=== PATIENT | male | born 1945 | race Caucasian/White ===

== ENCOUNTER 2019-04-01 09:33 | Day surgery (SDC) | payer MEDICARE, BC ==
[2019-04-01] MEDS ORDERED: Ropivacaine 0.5% 5 MG/ML 30 ML SDV INJECT ONE (09:34)
[2019-04-01] MEDS ORDERED: Lactated Ringers 1,000 ML IV SCH (09:45)
[2019-04-01] MEDS ORDERED: Scopolamine 1.5 MG Transdermal Patch TOP ONE (09:45)
[2019-04-01] MEDS ORDERED: Gabapentin 300 MG Cap PO ONE (09:45)
[2019-04-01] MEDS ORDERED: Acetaminophen 500 MG Tab PO ONE (09:45)
[2019-04-01] MEDS ORDERED: ceFAZolin 2 GM in Premix Bag 1 BAG IV ONE (11:30)
[2019-04-01] MEDS ORDERED: Ropivacaine 49.25 ML, Ketorolac 30 MG, EPINEPHrine 0.5 MG, cloNIDine 80 MCG, Sodium Chl... INJECT SCH ×5 (11:30)
[2019-04-01] MEDS ORDERED: Tranexamic Acid 3,000 MG, Sodium Chloride 0.9% 100 ML IRR ONE ×2 (11:45)
[2019-04-01] MEDS ORDERED: Acetaminophen/oxyCODONE 325-5 MG Tab PO PRN (11:56)
[2019-04-01] MEDS ORDERED: Bisacodyl 5 MG Tab PO PRN (11:56)
[2019-04-01] MEDS ORDERED: Sennosides 8.6 MG Tab PO PRN (11:56)
[2019-04-01] MEDS ORDERED: diphenhydrAMINE 50 MG/ML SDV IVPUSH PRN (11:56)
[2019-04-01] MEDS ORDERED: Docusate Sodium 100 MG Cap PO PRN (11:56)
[2019-04-01] MEDS ORDERED: traMADol 50 MG Tab PO PRN (11:56)
[2019-04-01] MEDS ORDERED: Magnesium Hydroxide 400 MG/5 ML Susp 30 ML Cup PO PRN (11:56)
[2019-04-01] MEDS ORDERED: Morphine 2 MG/ML Syringe IVPUSH PRN (11:56)
[2019-04-01] MEDS ORDERED: Ondansetron 4 MG/2 ML SDV IVPUSH PRN (11:56)
[2019-04-01] MEDS ORDERED: Naloxone 0.4 MG/ML SDV IVPUSH PRN (11:56)
[2019-04-01] MEDS ORDERED: Ketorolac 30 MG/ML SDV IVPUSH SCH (12:00)
--- NOTE | 2019-04-01 13:27 | PCM.OPNOTE ---
- General Post-Op/Procedure Note Date of Surgery/Procedure: 04/01/19 Operative Procedure(s): left medial pka Pre Op Diagnosis: m17.12 Post-Op Diagnosis: Same Anesthesia Technique: Combo Spinal/Epidural, Moderate Sedation Primary Surgeon: Jason Reardon Anesthesia Provider: Husam Reid EBL in mLs: 100 Complications: None Condition: Good
--- NOTE | 2019-04-01 14:53 | US ---
INDICATION: Guidance for left adductor nerve block distal thigh. ULTRASOUND, RFA GUIDANCE: Multiple ultrasonic images were obtained, utilizing ultrasound for guidance for left adductor nerve block for distal thigh, . MTDD
--- NOTE | 2019-04-01 14:56 | CR ---
INDICATION: Postop left knee hemiarthroplasty. LEFT KNEE: Frontal and lateral views of the left knee were obtained postop left knee medial hemiarthroplasty. The medial hemiarthroplasty components are in good position and alignment without evidence of a complicating process. Postop air is noted intraarticular. Metallic clips are noted for skin closure anteriorly. IMPRESSION: Satisfactory appearance postop medial hemiarthroplasty left knee. [facility]
[2019-04-01] MEDS: Ketorolac 30 MG/ML SDV IVPUSH SCH ×2 (15:13→22:04)
[2019-04-01] MEDS: Sodium Chloride 0.9% 10 ML Syringe FLUSH PRN ×2 (15:17→22:04)
--- NOTE | 2019-04-01 16:11 | PCM.SN ---
- Free Text/Narrative Note: ANESTHESIA ACUTE PAIN SERVICE Date: 04/01/2019 Time: 1347 to 1357 Preoperative Dx: Left Knee Osteoarthritis with Pain Postoperative Rx: Left Partial Knee Arthroplasty The surgeon and the patient have requested Peripheral Regional Anesthesia for Postoperative Pain Control. Procedure: Left Adductor Canal Nerve Block with Ultrasound [U/S] Guidance. Monitors: NIBP, Heart Rate, SpO2 and Oxygen via Simple Face Mask at 10L/M. See the nursing notes for vital signs during this procedure. Sedation: Versed .5 mg's and Fentanyl 50 mcg's IV. He remained easily arousable and alert throughout the procedure. His left leg was placed in a frog-leg position. A preprocedure U/S scan was done locating the left Sartorius Muscle and Femoral Artery easily. I prepped the needle insertion site area with 1 Chlora-prep Swab and allowed it to dry. No skin localization was needed [residual spinal effect]. Under direct U/S visualization, I advanced a 20 Ga. 4 In. Stimuplex Ultra 360 Echogenic Needle to proper placement. A total of 20 ml's of .5% Naropin in divided doses was injected easily with negative aspiration frequently for blood under direct U/S visualization. The patient is without complaints and tolerated the procedure well. Documentation: Please see the images in the Radiology PAC System. Thank you for using this service. BHAVESH River CRNA
--- NOTE | 2019-04-01 18:58 | OR ---
DATE OF OPERATION: 04/01/2019 SURGEON: Jason Reardon DO PREOPERATIVE DIAGNOSIS: Left knee primary osteoarthritis. POSTOPERATIVE DIAGNOSIS: Left knee primary osteoarthritis. PROCEDURE PERFORMED: Left knee medial compartment arthroplasty. ANESTHESIA: Spinal plus conscious sedation. FLUID: Lactated Ringer solution. ESTIMATED BLOOD LOSS: 100 mL. COMPLICATIONS: None. SPECIMEN: None. DISCHARGE DISPOSITION: Stable to PACU. INSTRUMENTATION: DePuy Sigma medial compartment; size 3 tibial tray; size 3, 8 mm polyethylene fixed-bearing insert; and size 4 femur. HISTORY AND INDICATIONS FOR THE PROCEDURE: The patient was seen before in clinic. He had failed nonoperative treatment. Preoperative imaging confirmed the above-mentioned diagnosis. Risks and benefits of the procedure were explained to the patient. Informed consent was obtained. DETAILS OF PROCEDURE: The patient was seen preoperatively by myself and the Anesthesia staff in the preoperative holding area where the operative site was marked. He was brought to the operative suite by the Anesthesia staff where spinal sedation was administered plus conscious sedation. A sterile Mehta catheter was inserted. A well-padded tourniquet was placed on the left thigh. The left lower extremity was then prepped and draped in a sterile manner. A time-out was called identifying the correct patient, the correct procedure, the correct site, and the antibiotics were in with an appropriate period of time. An incision was made medial to the superior pole of patella down to the level of the tibial tubercle. Bleeding was controlled with Bovie electrocautery. Please note, this was done after the time-out and exsanguinating and raising the tourniquet to 250 mmHg for 31 minutes and letting down during cementing. We then proceeded with a medial parapatellar arthrotomy and removed the infrapatellar fat pad and then performed a partial medial synovectomy. I then used Bovie electrocautery to expose the proximal medial tibia. We used Gelpi's for retraction. I used an extramedullary tibial guide with 0 to 2 degrees of slope and 2 mm cut. I made my vertical cut first in line with the anterior superior iliac spine and then the vertical cut and then removed the guide and then used an osteotome to finish my cuts. I then removed it. The femur was sized at 2. I had 7 mm minimum at that point with my measuring paddle. I then brought the knee into extension and then placed my distal femoral cutting guide. I pinned this in place, made my distal femoral cut and then removed the guide and then removed the distal femoral bone. I then marked the midportion using the paddles in both flexion and extension and then la a line between these two raya with the Bovie. I then inserted a #4 distal femoral cutting guide and pinned this into position. I then made my 3 chamfer cuts and 2 lug cuts. After this had been performed, I removed the guide and then finished my cuts and then removed any extra bone with the osteotome. I then placed my femoral trial, which fit well and this fit well with the 7 paddle. I then removed the femoral trial and then placed my tibial base plate for the keel cut. I then gouged the keel and kept this in position using a lamina bombsight specialist. I then drilled the lug hole and then removed the guide. We then copiously irrigated with saline. I did apply TXA as well as periarticular injection. I then cemented all my components in place using a 7 mm paddle. While the cement was drying, we let down the tourniquet. We made care to make sure all the cement was removed. After the cement dried, I ranged it and then placed an 8 paddle which seemed to be a little bit better for stability. We then copiously irrigated with saline as well as applied more TXA and applied some iodine and then irrigated again and placed my final polyethylene insert. This provided good range of motion with stability. We then irrigated again and then closed my parapatellar arthrotomy with two #5 [id number] Ethibond in an interrupted manner at the superior and inferior pole of the patella. I then closed with my #1 Stratafix. We then irrigated again with iodine and closed the subcutaneous layer with #1 Stratafix. We then applied skin fili, Betadine-soaked Adaptic, and then a sterile dressing followed by an Nehemiah wrap. The patient was then allowed to awaken from conscious sedation and then transferred to the PACU in stable condition. /[id number] WANG/HAM
[2019-04-01] MEDS: METFORMIN 500 MG PO SCH (19:17)
[2019-04-01] MEDS: ceFAZolin 2 GM in Premix Bag 1 BAG IV SCH (19:52)
[2019-04-01] MEDS ORDERED: ceFAZolin 1 GM Vial IVPUSH SCH (20:00)
[2019-04-01] MEDS ORDERED: Tamsulosin 0.4 MG Cap.ER*PTOM PO SCH (21:00)
[2019-04-01] MEDS ORDERED: PRAVASTATIN 20 MG PO SCH (21:00)
[2019-04-02] MEDS: ceFAZolin 2 GM in Premix Bag 1 BAG IV SCH (04:02)
[2019-04-02] MEDS ORDERED: Pantoprazole 40 MG Tab.CR PO SCH (06:00)
[2019-04-02] MEDS: METFORMIN 500 MG PO SCH (08:57)
[2019-04-02] MEDS ORDERED: Aspirin 325 MG Tab.EC PO SCH (09:00)
[2019-04-02] MEDS ORDERED: LISINOPRIL 10 MG PO SCH (09:00)
[2019-04-02] MEDS ORDERED: Metoprolol Tartrate 25 MG Tab*PTOM PO SCH (09:00)
[2019-04-02] MEDS ORDERED: HYDROCHLOROTHIAZIDE 25 MG PO SCH (09:00)
--- NOTE | 2019-04-02 09:51 | PCM.DCSUM1 ---
Discharge Summary - Hospital Course HPI Initial Comments: left knee primary osteoarthritis Diagnosis: Stroke: No - Discharge Data Discharge Date: 04/02/19 Discharge Disposition: Home, Self-Care 01 Condition: Good - Patient Summary/Data Operative Procedure(s) Performed: left medial pka Complications: none Consults: Consultations 04/01/19 11:56 Respiratory Care Assess and Treatment [CONS] Routine Comment: Physician Instructions: Post-op Pneumonia Prevention 04/01/19 15:00 OT Evaluation and Treatment [CONS] Routine Please Evaluate and Treat. OT Reason for Consult: Strengthening This query below is only for informational purposes and is not editable. Admission Diagnosis/Problem: Arthroplasty of knee PT Evaluation and Treatment [CONS] Routine Please Evaluate and Treat. PT Reason for Consult: Strengthening This query below is only for informational purposes and is not editable. Admission Diagnosis/Problem: Arthroplasty of knee - Patient Instructions Diet: Usual Diet as Tolerated Activity: Apply Ice, As Tolerated, Full Weight Bearing, No Strenuous Activities Driving: Do Not Drive Showering/Bathing: May Shower Showering/Bathing, Other: may shower then replace with clean dressing Wound/Incision Care: Keep Operative Site/Wound Site Clean and Dry, Change Dressing Daily Notify Provider of: Fever, Increased Pain, Swelling and Redness, Drainage, Nausea and/or Vomiting - Discharge Plan *PRESCRIPTION DRUG MONITORING PROGRAM REVIEWED*: Yes *COPY OF PRESCRIPTION DRUG MONITORING REPORT IN PATIENT GISSEL: No Prescriptions/Med Rec: Acetaminophen/oxyCODONE [Percocet 325-5 MG] 1 tab PO QID PRN #56 tablet PRN Reason: Pain (Moderate 4-6) Aspirin [Ecotrin] 325 mg PO DAILY #21 tab.ec traMADol [Ultram] 100 mg PO Q6H PRN #56 tablet PRN Reason: Pain (Mild 1-3) Home Medications: Home Meds Aspirin 162.5 mg PO DAILY 03/31/19 [History] Cinnamon Bark [Cinnamon] 500 mg PO BID 03/31/19 [History] Fish Oil/[place]-3 Fatty Acids [Fish Oil 1,000 MG] 1 gm PO DAILY 03/31/19 [History ] Lisinopril 10 mg PO DAILY 03/31/19 [History] Metoprolol Tartrate 25 mg PO DAILY 03/31/19 [History] Multivitamin [Multi-Day Vitamins] 1 tab PO DAILY 03/31/19 [History] Pravastatin Sodium 20 mg PO BEDTIME 03/31/19 [History] Tamsulosin [Flomax] 0.4 mg PO BEDTIME 03/31/19 [History] Triamcinolone Acetonide [Kenalog 0.1% Crm] 1 applic TOP BID PRN 03/31/19 [ History] hydroCHLOROthiazide [Hydrochlorothiazide] 12.5 mg PO DAILY 03/31/19 [History] metFORMIN [Glucophage] 500 mg PO BIDMEALS 03/31/19 [History] Acetaminophen/oxyCODONE [Percocet 325-5 MG] 1 tab PO QID PRN #56 tablet [Rx] Aspirin [Ecotrin] 325 mg PO DAILY #21 tab.ec 04/02/19 [Rx] traMADol [Ultram] 100 mg PO Q6H PRN #56 tablet 04/02/19 [Rx] - Discharge Summary/Plan Comment DC Time >30 min.: No - General Info Date of Service: 04/02/19 Functional Status: Reports: Pain Controlled, Tolerating Diet, Ambulating, Urinating - Review of Systems General: Reports: No Symptoms HEENT: Reports: No Symptoms Pulmonary: Reports: No Symptoms Cardiovascular: Reports: No Symptoms Gastrointestinal: Reports: No Symptoms Genitourinary: Reports: No Symptoms Musculoskeletal: Reports: No Symptoms, Leg Pain, Joint Pain, Joint Swelling Skin: Reports: No Symptoms Neurological: Reports: No Symptoms Psychiatric: Reports: No Symptoms - Patient Data Vitals - Most Recent: Last Vital Signs Temp 95.8 F 04/01/19 19:30 Pulse 62 04/02/19 08:59 Resp 18 04/01/19 19:30 BP 120/64 04/02/19 09:00 Pulse Ox 96 04/01/19 19:30 Weight - Most Recent: 271 lb I&O - Last 24 hours: Intake & Output 04/01/19 04/02/19 04/02/19 22:59 06:59 14:59 Intake Total 240 240 Output Total 100 200 Balance 140 40 Lab Results - Last 24 hrs: Laboratory Results - last 24 hr 04/02/19 04/02/19 Range/Units 06:25 06:25 WBC 8.4 (4.5-12.0) X10-3/uL RBC 4.19 L (4.30-5.75) x10(6)uL Hgb 12.6 L (13.5-17.8) g/dL Hct 37.1 (30.0-51.3) % MCV 88.7 (80-96) fL MCH 30.1 (27.7-33.6) pg MCHC 33.9 (32.2-35.4) g/dL RDW 14.3 (11.5-15.5) % Plt Count 192 (125-369) X10(3)uL MPV 6.9 L (7.4-10.4) fL Neut % (Auto) 80.5 (46-82) % Lymph % (Auto) 10.4 L (13-37) % [place] % (Auto) 7.2 (4-12) % Eos % (Auto) 2 (1.0-5.0) % Baso % (Auto) 0 (0-2) % Neut # (Auto) 6.7 (1.6-8.3) # Lymph # (Auto) 0.9 (0.6-5.0) # [place]itus # (Auto) 0.6 (0.0-1.3) # Eos # (Auto) 0.2 (0.0-0.8) # Baso # (Auto) 0.0 (0.0-0.2) # Sodium 137 (135-145) mmol/L Potassium 4.0 (3.5-5.3) mmol/L Chloride 103 (100-110) mmol/L Carbon Dioxide 24 (21-32) mmol/L BUN 33 H (7-18) mg/dL Creatinine 1.6 H (0.70-1.30) mg/dL Est Cr Clr Drug Dosing 36.00 mL/min Estimated GFR (MDRD) 42 L (>60) BUN/Creatinine Ratio 20.6 H (9-20) Glucose 117 H (80-116) mg/dL Calcium 8.3 L (8.6-10.2) mg/dL Total Bilirubin 0.4 (0.1-1.3) mg/dL AST 13 (5-25) IU/L ALT 21 (12-36) U/L Alkaline Phosphatase 65 (56-112) IU/L Total Protein 5.9 L (6.0-8.0) g/dL Albumin 3.0 L (3.2-4.6) g/dL Globulin 2.9 g/dL Albumin/Globulin Ratio 1.0 Med Orders - Current: Current Medications Aspirin (Ecotrin) 325 mg PO DAILY [facility] Last Admin: 04/02/19 08:58 Dose: 325 mg Bisacodyl (Dulcolax) 10 mg PO DAILY PRN PRN Reason: Constipation Diphenhydramine HCl (Benadryl) 25 mg IVPUSH Q4H PRN PRN Reason: Itching Docusate Sodium (Colace) 100 mg PO BID PRN PRN Reason: Constipation Hydrochlorothiazide (Hydrochlorothiazide) 12.5 mg PO DAILY [facility] Last Admin: 04/02/19 08:58 Dose: 12.5 mg Lactated Ringer's (Ringers, Lactated) 1,000 mls @ 125 mls/hr IV ASDIRECTED [facility] Last Admin: 04/01/19 10:31 Dose: 125 mls/hr Lisinopril (Prinivil) 10 mg PO DAILY [facility] Last Admin: 04/02/19 09:00 Dose: 10 mg Magnesium Hydroxide (Milk Of Magnesia) 30 ml PO BID PRN PRN Reason: Constipation Metformin HCl (Glucophage) 500 mg PO BIDMEALS [facility] Last Admin: 04/02/19 08:57 Dose: 500 mg Metoprolol Tartrate (Lopressor) 25 mg PO DAILY [facility] Last Admin: 04/02/19 08:59 Dose: 25 mg Morphine Sulfate (Morphine) 2 mg IVPUSH Q2H PRN PRN Reason: Breakthrough Pain Naloxone HCl (Narcan) 0.1 mg IVPUSH ONETIME PRN PRN Reason: Oversedation Ondansetron HCl (Zofran) 4 mg IVPUSH Q4H PRN PRN Reason: Nausea/Vomiting Oxycodone/Acetaminophen (Percocet 325-5 Mg) 2 tab PO Q4H PRN PRN Reason: Pain (moderate 4-6) Pantoprazole Sodium (Protonix) 40 mg PO 0600 [facility] Last Admin: 04/02/19 06:01 Dose: 40 mg Pravastatin Sodium (Pravachol) 20 mg PO BEDTIME [facility] Last Admin: 04/01/19 22:03 Dose: 20 mg Senna (Senna) 8.6 mg PO BID PRN PRN Reason: Constipation Sodium Chloride (Saline Flush) 10 ml FLUSH ASDIRECTED PRN PRN Reason: Keep Vein Open Last Admin: 04/01/19 22:04 Dose: 10 ml Tamsulosin HCl (Flomax) 0.4 mg PO BEDTIME [facility] Last Admin: 04/01/19 22:04 Dose: 0.4 mg Tramadol HCl (Ultram) 100 mg PO Q6H PRN PRN Reason: Pain (mild 1-3) Discontinued Medications Acetaminophen (Tylenol Extra Strength) 1,000 mg PO ONETIME ONE Stop: 04/01/19 09:46 Last Admin: 04/01/19 10:27 Dose: 1,000 mg Ropivacaine 49.25 ml/Ketorolac Tromethamine 30 mg/Epinephrine HCl 0.5 mg/ Clonidine HCl 80 mcg/ Sodium Chloride 48.45 ml 0 ml INJECT ASDIRECTED [facility] Last Admin: 04/01/19 12:49 Dose: 100 syringe Tranexamic Acid 3,000 mg/ (Sodium Chloride 100 ml) 0 mg IRR ONETIME ONE Stop: 04/01/19 11:46 Last Admin: 04/01/19 12:51 Dose: 3,000 irr Gabapentin (Neurontin) 300 mg PO ONETIME ONE Stop: 04/01/19 09:46 Last Admin: 04/01/19 10:27 Dose: 300 mg Cefazolin Sodium/Dextrose 2 gm (/ Premix) 50 mls @ 100 mls/hr IV ONETIME ONE Stop: 04/01/19 11:59 Last Admin: 04/01/19 10:30 Dose: 100 mls/hr Cefazolin Sodium/Dextrose 2 gm (/ Premix) 50 mls @ 100 mls/hr IV Q8H [facility] Stop: 04/02/19 04:29 Last Admin: 04/02/19 04:02 Dose: 100 mls/hr Ketorolac Tromethamine (Toradol) 30 mg IVPUSH Q8H [facility] Ketorolac Tromethamine (Toradol) 30 mg IVPUSH Q8H [facility] Stop: 04/01/19 22:31 Last Admin: 04/01/19 22:04 Dose: 30 mg Scopolamine (Transderm-Scop) 1.5 mg TOP ONETIME ONE Stop: 04/01/19 09:46 Last Admin: 04/01/19 10:28 Dose: 1.5 mg - Exam Quality Assessment: Reports: DVT Prophylaxis General: Reports: Alert, Oriented, Cooperative, No Acute Distress HEENT: Reports: Pupils Equal, Pupils Reactive, EOMI, Mucous Membr. Moist/[place]: Reports: Supple, Trachea Midline Lungs: Reports: Normal Respiratory Effort GI/Abdominal Exam: No Distention Extremities: Joint Swelling, Leg Pain, Limited Range of Motion Skin: Reports: Warm, Dry, Intact Wound/Incisions: Reports: Healing Well, Dressing Dry and Intact, No Drainage Neurological: Reports: No New Focal Deficit Psy/Mental Status: Reports: Alert, Normal Affect, Normal Mood Physical Findings Comments:: ambulating well with walker, pain well controlled Discharge Operative/Procedures - Procedures Performed Operations: left medial pka
== END 2019-04-02 11:45 | disposition home or self-care (01) ==
LOC: FB.SDS 09:33 → FB.MS 14:20 → FB.SDS 04-02 11:45
PROVIDERS: ATTEND Orthopaedic Surgery
DX: M17.12 Unilateral primary osteoarthritis, left knee (principal); I12.9 Hypertensive chronic kidney disease with stage 1 through stage 4 chronic kidney disease, or unspecified chronic kidney disease; E11.22 Type 2 diabetes mellitus with diabetic chronic kidney disease; N18.9 Chronic kidney disease, unspecified; Z87.892 Personal history of anaphylaxis; Z79.82 Long term (current) use of aspirin; Z79.899 Other long term (current) drug therapy
CPT/HCPCS: 01400-QZ; 36415; 64447-QZ; 73560-LT; 80053; 82962; 85025; 94150; 97110-GP; 97161-GP; 97165-GO; A9270-GY; C1776; J0171; J0690; J0735; J1885; J2795; J7030; J7050; J7120

== ENCOUNTER 2021-02-05 12:51 | Inpatient (IN) | payer MEDICARE, BC ==
[2021-02-05] MEDS ORDERED: Non-Formulary Medication 1 Each (Insulin Aspart [Novolog] 100 UNIT/ML Pen) SUBCUT PRN (16:34)
[2021-02-05] MEDS ORDERED: Glucagon,Human Recombinant 1 MG Vial IM PRN (16:34)
[2021-02-05] MEDS ORDERED: 50% Dextrose in Water 50 ML Syringe IVPUSH PRN (16:34)
--- NOTE | 2021-02-05 17:31 | PCM.HP.2 ---
H&P History of Present Illness - General Date of Service: 02/05/21 Admit Problem/Dx: Admission Diagnosis/Problem Admission Diagnosis/Problem Weakness Source of Information: Patient, Old Records History Limitations: Reports: No Limitations - History of Present Illness Initial Comments - Free Text/Narative: This is a 75-year-old male patient was transferred from [address] for swing bed. He was admitted on 01/04/21 for malaise, cough, congestion, weakness. He was found to have COVID-19, acute kidney injury. This progressed to a pneumonia and respiratory failure. He was in the hospital for 1 month and transfer today. Today he is on oxygen and is short of breath but other than that he has no complaints she denies fevers, chills,sore throat, cough. He has some hematuria has a urostomy. He will have another operation with urology. The urologist will not do the operate until his oxygen is normal. Is here to wean off his oxygen and to strengthen. - Related Data Allergies/Adverse Reactions: Allergies Allergy/AdvReac Type Severity Reaction Status Date / Time Gafrnqd-[id number]-Bvq Reductase Allergy Muscle Verified 04/01/19 09:48 Inhibitor Aches Home Medications: Home Meds Metoprolol Tartrate 25 mg PO BID 03/31/19 [History] Apixaban [Eliquis] 5 mg PO BID 02/05/21 [History] Ascorbic Acid 500 mg PO DAILY 02/05/21 [History] Aspirin 81 mg PO DAILY 02/05/21 [History] Cholecalciferol (Vitamin D3) [Vitamin D3] 1,200 unit PO DAILY 02/05/21 [History] Furosemide [Lasix] 20 mg PO DAILY 02/05/21 [History] Insulin Aspart [NovoLOG] 1 - 16 units SUBCUT WITHMEALSANDBED PRN 02/05/21 [History] Insulin Aspart [NovoLOG] 4 unit SUBCUT TIDMEALS 02/05/21 [History] Insulin Glarg,Human.Rec.Analog [Lantus Solostar] 16 unit SUBCUT BEDTIME 02/05/21 [History] Melatonin 6 mg PO BEDTIME 02/05/21 [History] Sertraline HCl 25 mg PO DAILY 02/05/21 [History] Zinc Sulfate [Zincate] 220 mg PO DAILY 02/05/21 [History] Past Medical History Cardiovascular History: Reports: Hypertension Gastrointestinal History: Reports: Diverticulosis, Hemorrhoids Endocrine/Metabolic History: Reports: Diabetes, Type II Dermatologic History: Reports: Other (See Below) Other Dermatologic History: DERMATITIS - Past Surgical History HEENT Surgical History: Reports: Oral Surgery Respiratory Surgical History: Reports: Lung Biopsies GI Surgical History: Reports: Colonoscopy, Hernia Repair/Other, Other (See Below) Other GI Surgeries/Procedures: HEMORRHOID SURGERY Musculoskeletal Surgical History: Reports: Knee Replacement, Other (See Below) Other Musculoskeletal Surgeries/Procedures:: HAND SURGERY Social & Family History - Family History Cardiac: Reports: Hypertension, Other (See Below) (Other cardiovascular disease) Respiratory: Reports: Other (See Below) (With) Psychiatric: Reports: Other (See Below) (Brother with Alzheimer's disease) Other Oncologic Family History: For the colon cancer, brother with lymphoma, sisters with colon cancer, sister with breast cancer, mother with breast cancer - Caffeine Use Caffeine Use: Reports: Coffee H&P Review of Systems - Review of Systems: Review Of Systems: See Below General: Reports: Weakness HEENT: Reports: No Symptoms Pulmonary: Reports: Shortness of Breath, Wheezing Cardiovascular: Reports: No Symptoms Gastrointestinal: Reports: No Symptoms Genitourinary: Reports: No Symptoms Musculoskeletal: Reports: No Symptoms Skin: Reports: No Symptoms Psychiatric: Reports: No Symptoms Neurological: Reports: No Symptoms Hematologic/Lymphatic: Reports: No Symptoms Immunologic: Reports: No Symptoms Exam - Exam Exam: See Below - Vital Signs Vital Signs: Last Vital Signs Temp Pulse Resp BP Pulse Ox 92 L 02/05/21 16:31 Weight: 183 lb 6 oz - Exam General: Alert, Oriented, Cooperative, Other (O2 in place) HEENT: Hearing Intact, Posterior Pharynx Clear, TMs Clear Neck: Supple, Trachea Midline Lungs: Clear to Auscultation, Normal Respiratory Effort Cardiovascular: Regular Rate, Regular Rhythm GI/Abdominal Exam: Normal Bowel Sounds, Soft, Non-Tender, No Distention Back Exam: Normal Inspection, Full Range of Motion Extremities: Normal Inspection, Non-Tender, No Pedal Edema Neuro Extensive - Mental Status: Alert, Oriented x3, Normal Mood/Affect, Normal Cognition, Memory Intact Psychiatric: Alert, Normal Affect, Normal Mood Sepsis Event Note - Evaluation Sepsis Screening Result: No Definite Risk - Focused Exam Vital Signs: Vital Signs Pulse Ox 02/05/21 16:31 92 L - Problem List (1) Pneumonia due to COVID-19 virus SNOMED Code(s): 790191367451819057 ICD Code: U07.1 - COVID-19; J12.82 - PNEUMONIA DUE TO CORONAVIRUS DISEASE 2019 Status: Acute Current Visit: Yes (2) Respiratory failure SNOMED Code(s): 152567197 ICD Code: J96.90 - RESPIRATORY FAILURE, UNSP, UNSP W HYPOXIA OR HYPERCAPNIA Status: Acute Current Visit: Yes (3) O2 dependent SNOMED Code(s): 992248357450 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 Status: Acute Current Visit: Yes (4) Acute weakness SNOMED Code(s): 30803425 ICD Code: R53.1 - WEAKNESS Status: Acute Current Visit: Yes Problem List Initiated/Reviewed/Updated: Yes Orders Last 24hrs: Active Orders 24 hr Category Date Time Status Admission Status [Patient Status] [ADT] Routine ADT 02/05/21 15:30 Active Patient Status [ADT] Routine ADT 02/05/21 16:31 Active Blood Glucose Check, Bedside [RC] BIDMEALS Care 02/05/21 16:30 Active Oxygen Therapy [RC] PRN Care 02/05/21 16:31 Active Up With Assistance [RC] ASDIRECTED Care 02/05/21 16:30 Active VTE/DVT Education [RC] Per Unit Routine Care 02/05/21 16:31 Active Vital Signs [RC] DAILY Care 02/05/21 16:30 Active OT Evaluation and Treatment [CONS] Routine Cons 02/05/21 16:30 Active PT Evaluation and Treatment [CONS] Routine Cons 02/05/21 16:30 Active Consistent Carbohydrate Diet [DIET] Diet 02/05/21 Dinner Active Apixaban [Eliquis] Med 02/05/21 21:00 Active 5 mg PO BID Ascorbic Acid [Vitamin C] Med 02/06/21 09:00 Active 500 mg PO DAILY Aspirin Med 02/06/21 09:00 Active 81 mg PO DAILY Cholecalciferol (Vitamin D3) [Vitamin D3] Med 02/06/21 09:00 Active 25 mcg PO DAILY Dextrose 50% in Water Med 02/05/21 16:34 Active 50 ml IVPUSH ASDIRECTED PRN Furosemide [Lasix] Med 02/06/21 09:00 Active 20 mg PO DAILY Glucagon,Human Recombinant [GlucaGen] Med 02/05/21 16:34 Active 1 mg IM ASDIRECTED PRN Insulin Glarg,Human.Rec.Analog [LantUS Solostar] Med 02/05/21 21:00 Active 16 units SUBCUT BEDTIME Insulin Lispro [HumaLOG] Med 02/05/21 18:00 Active 4 unit SUBCUT TIDMEALS Insulin Lispro [HumaLOG] Med 02/05/21 18:00 Active See Protocol SUBCUT WITHMEALSANDBED Melatonin Med 02/05/21 21:00 Active 6 mg PO BEDTIME Metoprolol Tartrate [Lopressor] Med 02/05/21 21:00 Active 25 mg PO BID Sertraline [Zoloft] Med 02/06/21 09:00 Active 25 mg PO DAILY Zinc Sulfate [Zincate] Med 02/06/21 09:00 Active 220 mg PO DAILY Resuscitation Status Routine Resus Stat 02/05/21 16:30 Ordered Medication Orders Apixaban (Apixaban 5 Mg Tab) 5 mg PO BID [facility] Ascorbic Acid (Ascorbic Acid 500 Mg Tab) 500 mg PO DAILY [facility] Aspirin (Aspirin 81 Mg Tab.Chew) 81 mg PO DAILY [facility] Cholecalciferol (Cholecalciferol (Vitamin D3) 25 Mcg Tab) 25 mcg PO DAILY [facility] Dextrose/Water (50% Dextrose In Water 50 Ml Syringe) 50 ml IVPUSH ASDIRECTED PRN PRN Reason: Hypoglycemia Furosemide (Furosemide 20 Mg Tab) 20 mg PO DAILY [facility] Glucagon (Glucagon,Human Recombinant 1 Mg Vial) 1 mg IM ASDIRECTED PRN PRN Reason: Hypoglycemia Insulin Glargine (Insulin Glargine,Human Rec. Analog 100 Units/Ml 3 Ml Pen) 16 units SUBCUT BEDTIME [facility] Insulin Human Lispro (Insulin Lispro 100 Unit/Ml 3 Ml Kwikpen) 4 unit SUBCUT TIDMEALS [facility] Insulin Human Lispro (Insulin Lispro 100 Unit/Ml 3 Ml Kwikpen) 0 unit SUBCUT WITHMEALSANDBED [facility]; Protocol Melatonin (Melatonin 3 Mg Tab) 6 mg PO BEDTIME [facility] Metoprolol Tartrate (Metoprolol Tartrate 25 Mg Tab) 25 mg PO BID [facility] Sertraline HCl (Sertraline 25 Mg Tab) 25 mg PO DAILY [facility] Zinc Sulfate (Zinc Sulfate 220 Mg Cap) 220 mg PO DAILY [facility] Assessment/Plan Comment:: 1. Admit to swing bed. 2. PT/OT eval 3. Diabetic diet with Accu-Cheks twice a day 4. O2 and then try to wean over time. 5. Up with assist 6. No labs or x-rays. 7. Full code 8. See swing bed orders - Mortality Measure Prognosis:: Good
[2021-02-05] MEDS: Insulin Lispro 100 Unit/ML 3 ML KwikPen SUBCUT SCH ×3 (18:20→21:51)
[2021-02-05] MEDS ORDERED: Insulin Lispro 100 Unit/ML 3 ML KwikPen SUBCUT ONE (21:00)
[2021-02-05] MEDS ORDERED: Insulin Glargine,Human Rec. Analog 100 Units/ML 3 ML Pen SUBCUT ONE (21:00)
[2021-02-05] MEDS ORDERED: Insulin Glargine,Human Rec. Analog 100 Units/ML 3 ML Pen SUBCUT SCH (21:00)
[2021-02-05] MEDS: Metoprolol Tartrate 25 MG Tab PO SCH (21:46)
[2021-02-05] MEDS: Melatonin 3 MG Tab PO SCH (21:47)
[2021-02-05] MEDS: Apixaban 5 MG Tab PO SCH (21:47)
[2021-02-06] MEDS: Metoprolol Tartrate 25 MG Tab PO SCH ×2 (09:00→10:34)
[2021-02-06] MEDS: Insulin Lispro 100 Unit/ML 3 ML KwikPen SUBCUT SCH ×6 (09:00→21:49)
[2021-02-06] MEDS: Ascorbic Acid 500 MG Tab PO SCH (10:00)
[2021-02-06] MEDS: Sertraline 25 MG Tab PO SCH (10:00)
[2021-02-06] MEDS: Cholecalciferol (Vitamin D3) 25 MCG Tab PO SCH (10:00)
[2021-02-06] MEDS: Aspirin 81 MG Tab.Chew PO SCH (10:01)
[2021-02-06] MEDS: Apixaban 5 MG Tab PO SCH ×2 (10:01→21:21)
[2021-02-06] MEDS: Zinc Sulfate 220 MG Cap PO SCH (10:01)
[2021-02-06] MEDS: Furosemide 20 MG Tab PO SCH (10:32)
[2021-02-06] MEDS: Melatonin 3 MG Tab PO SCH (21:21)
[2021-02-06] MEDS: Insulin Glargine,Human Rec. Analog 100 Units/ML 3 ML Pen SUBCUT SCH (21:50)
[2021-02-07] MEDS: Sertraline 25 MG Tab PO SCH (08:41)
[2021-02-07] MEDS: Ascorbic Acid 500 MG Tab PO SCH (08:41)
[2021-02-07] MEDS: Zinc Sulfate 220 MG Cap PO SCH (08:41)
[2021-02-07] MEDS: Apixaban 5 MG Tab PO SCH ×2 (08:41→21:36)
[2021-02-07] MEDS: Aspirin 81 MG Tab.Chew PO SCH (08:41)
[2021-02-07] MEDS: Furosemide 20 MG Tab PO SCH (08:41)
[2021-02-07] MEDS: Insulin Lispro 100 Unit/ML 3 ML KwikPen SUBCUT SCH ×4 (08:42→21:43)
[2021-02-07] MEDS: Cholecalciferol (Vitamin D3) 25 MCG Tab PO SCH (08:43)
[2021-02-07] MEDS: Melatonin 3 MG Tab PO SCH (21:37)
[2021-02-07] MEDS: Metoprolol Tartrate 25 MG Tab PO SCH (21:41)
[2021-02-07] MEDS: Insulin Glargine,Human Rec. Analog 100 Units/ML 3 ML Pen SUBCUT SCH (21:41)
[2021-02-08] MEDS: Insulin Lispro 100 Unit/ML 3 ML KwikPen SUBCUT SCH ×4 (08:45→20:22)
[2021-02-08] MEDS: Aspirin 81 MG Tab.Chew PO SCH (08:46)
[2021-02-08] MEDS: Ascorbic Acid 500 MG Tab PO SCH (08:47)
[2021-02-08] MEDS: Apixaban 5 MG Tab PO SCH ×2 (08:47→20:21)
[2021-02-08] MEDS: Zinc Sulfate 220 MG Cap PO SCH (08:47)
[2021-02-08] MEDS: Sertraline 25 MG Tab PO SCH (08:48)
[2021-02-08] MEDS: Furosemide 20 MG Tab PO SCH (08:48)
[2021-02-08] MEDS: Cholecalciferol (Vitamin D3) 25 MCG Tab PO SCH (08:50)
[2021-02-08] MEDS: Metoprolol Tartrate 25 MG Tab PO SCH ×2 (08:50→20:20)
[2021-02-08] MEDS: Insulin Glargine,Human Rec. Analog 100 Units/ML 3 ML Pen SUBCUT SCH (20:21)
[2021-02-08] MEDS: Melatonin 3 MG Tab PO SCH (20:21)
[2021-02-09] MEDS: Insulin Lispro 100 Unit/ML 3 ML KwikPen SUBCUT SCH ×4 (08:23→20:51)
[2021-02-09] MEDS: Aspirin 81 MG Tab.Chew PO SCH (08:29)
[2021-02-09] MEDS: Metoprolol Tartrate 25 MG Tab PO SCH ×2 (08:30→20:49)
[2021-02-09] MEDS: Furosemide 20 MG Tab PO SCH (08:30)
[2021-02-09] MEDS: Apixaban 5 MG Tab PO SCH ×2 (08:30→20:50)
[2021-02-09] MEDS: Zinc Sulfate 220 MG Cap PO SCH (08:31)
[2021-02-09] MEDS: Cholecalciferol (Vitamin D3) 25 MCG Tab PO SCH (08:31)
[2021-02-09] MEDS: Ascorbic Acid 500 MG Tab PO SCH (08:31)
[2021-02-09] MEDS: Sertraline 25 MG Tab PO SCH (08:31)
[2021-02-09] MEDS: Melatonin 3 MG Tab PO SCH (20:50)
[2021-02-09] MEDS: Insulin Glargine,Human Rec. Analog 100 Units/ML 3 ML Pen SUBCUT SCH (20:51)
[2021-02-10] MEDS: Insulin Lispro 100 Unit/ML 3 ML KwikPen SUBCUT SCH ×4 (08:00→21:19)
[2021-02-10] MEDS: Metoprolol Tartrate 25 MG Tab PO SCH ×2 (09:26→21:25)
[2021-02-10] MEDS: Ascorbic Acid 500 MG Tab PO SCH (09:26)
[2021-02-10] MEDS: Aspirin 81 MG Tab.Chew PO SCH (09:26)
[2021-02-10] MEDS: Apixaban 5 MG Tab PO SCH ×2 (09:27→21:17)
[2021-02-10] MEDS: Cholecalciferol (Vitamin D3) 25 MCG Tab PO SCH (09:28)
[2021-02-10] MEDS: Zinc Sulfate 220 MG Cap PO SCH (09:28)
[2021-02-10] MEDS: Furosemide 20 MG Tab PO SCH (09:28)
[2021-02-10] MEDS: Sertraline 25 MG Tab PO SCH (09:29)
[2021-02-10] MEDS: Melatonin 3 MG Tab PO SCH (21:17)
[2021-02-10] MEDS: Insulin Glargine,Human Rec. Analog 100 Units/ML 3 ML Pen SUBCUT SCH (21:18)
[2021-02-11] MEDS: Insulin Lispro 100 Unit/ML 3 ML KwikPen SUBCUT SCH ×4 (07:24→20:53)
[2021-02-11] MEDS: Ascorbic Acid 500 MG Tab PO SCH (08:55)
[2021-02-11] MEDS: Aspirin 81 MG Tab.Chew PO SCH (08:55)
[2021-02-11] MEDS: Metoprolol Tartrate 25 MG Tab PO SCH ×2 (08:56→20:50)
[2021-02-11] MEDS: Zinc Sulfate 220 MG Cap PO SCH (08:57)
[2021-02-11] MEDS: Furosemide 20 MG Tab PO SCH (08:58)
[2021-02-11] MEDS: Apixaban 5 MG Tab PO SCH ×2 (08:58→20:51)
[2021-02-11] MEDS: Cholecalciferol (Vitamin D3) 25 MCG Tab PO SCH (08:59)
[2021-02-11] MEDS: Sertraline 25 MG Tab PO SCH (08:59)
[2021-02-11] MEDS: Melatonin 3 MG Tab PO SCH (20:51)
[2021-02-11] MEDS: Insulin Glargine,Human Rec. Analog 100 Units/ML 3 ML Pen SUBCUT SCH (20:52)
[2021-02-12] MEDS: Insulin Lispro 100 Unit/ML 3 ML KwikPen SUBCUT SCH ×4 (07:34→21:20)
[2021-02-12] MEDS: Ascorbic Acid 500 MG Tab PO SCH (09:28)
[2021-02-12] MEDS: Aspirin 81 MG Tab.Chew PO SCH (09:29)
[2021-02-12] MEDS: Metoprolol Tartrate 25 MG Tab PO SCH ×2 (09:33→21:24)
[2021-02-12] MEDS: Sertraline 25 MG Tab PO SCH (09:36)
[2021-02-12] MEDS: Zinc Sulfate 220 MG Cap PO SCH (09:37)
[2021-02-12] MEDS: Furosemide 20 MG Tab PO SCH (09:37)
[2021-02-12] MEDS: Cholecalciferol (Vitamin D3) 25 MCG Tab PO SCH (09:37)
[2021-02-12] MEDS: Apixaban 5 MG Tab PO SCH ×2 (09:38→21:24)
[2021-02-12] MEDS: Insulin Glargine,Human Rec. Analog 100 Units/ML 3 ML Pen SUBCUT SCH (21:21)
[2021-02-12] MEDS: Melatonin 3 MG Tab PO SCH (21:25)
[2021-02-13] MEDS: Insulin Lispro 100 Unit/ML 3 ML KwikPen SUBCUT SCH ×4 (08:00→20:56)
[2021-02-13] MEDS: Ascorbic Acid 500 MG Tab PO SCH (08:51)
[2021-02-13] MEDS: Cholecalciferol (Vitamin D3) 25 MCG Tab PO SCH (08:52)
[2021-02-13] MEDS: Aspirin 81 MG Tab.Chew PO SCH (08:52)
[2021-02-13] MEDS: Apixaban 5 MG Tab PO SCH ×2 (08:52→20:57)
[2021-02-13] MEDS: Metoprolol Tartrate 25 MG Tab PO SCH ×2 (08:53→20:57)
[2021-02-13] MEDS: Zinc Sulfate 220 MG Cap PO SCH (08:53)
[2021-02-13] MEDS: Furosemide 20 MG Tab PO SCH (08:59)
[2021-02-13] MEDS: Sertraline 25 MG Tab PO SCH (09:00)
[2021-02-13] MEDS: Insulin Glargine,Human Rec. Analog 100 Units/ML 3 ML Pen SUBCUT SCH (20:57)
[2021-02-13] MEDS: Melatonin 3 MG Tab PO SCH (20:58)
[2021-02-14] MEDS: Insulin Lispro 100 Unit/ML 3 ML KwikPen SUBCUT SCH ×4 (08:23→20:28)
[2021-02-14] MEDS: Ascorbic Acid 500 MG Tab PO SCH (08:23)
[2021-02-14] MEDS: Apixaban 5 MG Tab PO SCH ×2 (08:23→20:27)
[2021-02-14] MEDS: Aspirin 81 MG Tab.Chew PO SCH (08:23)
[2021-02-14] MEDS: Cholecalciferol (Vitamin D3) 25 MCG Tab PO SCH (08:24)
[2021-02-14] MEDS: Metoprolol Tartrate 25 MG Tab PO SCH ×2 (08:24→20:27)
[2021-02-14] MEDS: Zinc Sulfate 220 MG Cap PO SCH (08:24)
[2021-02-14] MEDS: Sertraline 25 MG Tab PO SCH (08:24)
[2021-02-14] MEDS: Furosemide 20 MG Tab PO SCH (08:24)
[2021-02-14] MEDS: Melatonin 3 MG Tab PO SCH (20:27)
[2021-02-14] MEDS: Insulin Glargine,Human Rec. Analog 100 Units/ML 3 ML Pen SUBCUT SCH (20:28)
[2021-02-15] MEDS: Aspirin 81 MG Tab.Chew PO SCH (09:06)
[2021-02-15] MEDS: Furosemide 20 MG Tab PO SCH (09:06)
[2021-02-15] MEDS: Ascorbic Acid 500 MG Tab PO SCH (09:06)
[2021-02-15] MEDS: Sertraline 25 MG Tab PO SCH (09:06)
[2021-02-15] MEDS: Cholecalciferol (Vitamin D3) 25 MCG Tab PO SCH (09:06)
[2021-02-15] MEDS: Zinc Sulfate 220 MG Cap PO SCH (09:07)
[2021-02-15] MEDS: Apixaban 5 MG Tab PO SCH (09:07)
[2021-02-15] MEDS: Metoprolol Tartrate 25 MG Tab PO SCH (09:07)
[2021-02-15] MEDS: Insulin Lispro 100 Unit/ML 3 ML KwikPen SUBCUT SCH ×2 (09:08→12:35)
--- NOTE | 2021-02-15 12:49 | DISCH ---
DISCHARGE DATE: 02/15/2021 REASON FOR ADMISSION: 1. Acute weakness. 2. Chronic respiratory failure. 3. COVID-19 pneumonia. 4. DVT. 5. Hypertension. BRIEF HISTORY AND HOSPITAL COURSE: This is a 75-year-old male who was in [facility] for respiratory failure due to COVID-19 pneumonia, was discharged on oxygen back here a week needing physical rehab. He has done well and is ready to go home today with home health to continue therapy and O2. DISCHARGE MEDICATIONS: 1. Metoprolol was reduced to 12.5 mg twice a day. 2. He will go on Eliquis 5 mg twice a day. The rest of the prescription on discharge includes: 1. Zoloft 25 mg once a day. 2. Ascorbic acid 500 mg daily. 3. Aspirin 81 mg a day. 4. Insulin Lantus 8 units daily. 5. Vitamin D3. 6. Zinc 220 mg daily. 7. Melatonin 6 mg at bedtime. 8. Lasix 20 mg a day. FOLLOWUP: With PCP in 1 week and home health will continue to evaluate him. I spent more than 35 minutes in the discharge of the patient. /[id number] [place]
== END 2021-02-15 12:50 | disposition home health service (06) | DRG 947 ==
LOC: FB.MS 15:29 → UNDOADMIN 15:29
PROVIDERS: ADMIT Family Medicine; ATTEND Family Medicine
DX: R53.1 Weakness (principal); U07.1 COVID-19; J12.82 Pneumonia due to coronavirus disease 2019; J96.10 Chronic respiratory failure, unspecified whether with hypoxia or hypercapnia; Z96.659 Presence of unspecified artificial knee joint; K57.90 Diverticulosis of intestine, part unspecified, without perforation or abscess without bleeding; I12.9 Hypertensive chronic kidney disease with stage 1 through stage 4 chronic kidney disease, or unspecified chronic kidney disease; N18.30 Chronic kidney disease, stage 3 unspecified; E11.22 Type 2 diabetes mellitus with diabetic chronic kidney disease; E78.5 Hyperlipidemia, unspecified; Z79.4 Long term (current) use of insulin; Z79.82 Long term (current) use of aspirin; Z79.899 Other long term (current) drug therapy
CPT/HCPCS: 82947; 82962; 92610-GN; 94150; 97110-GO; 97110-GP; 97116-GP; 97161-GP; 97166-GO; 97530-GO; 97530-GP; 97535-GO; 97542-GO; A9270-GY; J1815; J1815-GY